=== PATIENT | female | born 1970 | race Two or more races ===

== ENCOUNTER 2017-04-19 21:45 | Emergency (ER) | payer OTHER ==
--- NOTE | 2017-05-04 15:51 | ER ---
ADMIT: 04/19/2017 RM/LOC: ER [facility] MR#: [id number] [facility] [id number] [place], [place] [address] [address] [place] [address] Emergency Room Report SEX: F AGE: 46 : 1970 DATE: 04/19/2017 A 46-year-old with a headache times past 7 days. She states that she gets frequent headaches similar to this. See T-sheet for remainder of history and physical. The patient later in her ER stay. Stated it only started in her shoulders and radiated up to her head. She is therefore given Flexeril with resolution of her pain. DIAGNOSIS: Headache. Instructed to follow up with the primary doctor this coming week. She is given a prescription for Flexeril. Herb Prince MD/ vaishnavi JOB #: [id number] CC: Jose Guillen MD, Attending Physician
== END 2017-04-19 23:20 | disposition home or self-care (01) ==
LOC: ER 21:45
DX: R51 Headache (principal); Z79.899 Other long term (current) drug therapy